=== PATIENT | male | born 1940 | race Caucasian/White ===

== ENCOUNTER 2022-06-13 20:37 | Inpatient (IN) | payer MEDICARE, OTHER ==
[~2022-06-13] VITALS: Ht 170.2 cm; Wt 115.7 kg
--- NOTE | 2022-06-13 20:00 | NUR ---
Received admission report from [facility] nurse.
--- NOTE | 2022-06-13 20:35 | NUR ---
Patient arrived in the floor from [facility] via gurney accompanied by 2 EMT's and son. Awake, alert and oriented x 4, French speaking with a little Panamanian. In no apparent distress. Denies any pain at this time. Left hip dressing dry and intact, Limited mobilty noted on LE. Transferred to bed with 3 people assist. Made comfortable in bed. Routine admission care done. Plan of acre initiated.
[2022-06-13 22:45] VITALS: BP 126/66
[2022-06-13] MEDS ORDERED: LOSA1TAB39 PO (23:36)
[2022-06-13] MEDS ORDERED: APIX2.5T PO (23:36)
[2022-06-13] MEDS ORDERED: SENN-18 PO (23:36)
[2022-06-13] MEDS ORDERED: FERR325T28 PO (23:36)
[2022-06-13] MEDS ORDERED: PREG50CA PO (23:36)
[2022-06-13] MEDS ORDERED: ALEN70TA80 PO (23:36)
[2022-06-13] MEDS ORDERED: CALC-494 PO (23:36)
[2022-06-13] MEDS ORDERED: DEXL60CA3 PO (23:36)
[2022-06-13] MEDS ORDERED: HYDR-4077 PO (23:36)
[2022-06-13] MEDS ORDERED: CLON0.1T PO (23:36)
[2022-06-13] MEDS ORDERED: SIMV-46 PO (23:36)
[2022-06-13] MEDS ORDERED: METF-442 PO (23:36)
[2022-06-13] MEDS ORDERED: AMLO-212 PO (23:36)
[2022-06-13] MEDS ORDERED: DOCU250C14 PO (23:36)
[2022-06-13] MEDS ORDERED: IBUP-1955 PO (23:36)
[2022-06-13] MEDS ORDERED: TICA90TA PO (23:37)
[2022-06-14 04:00] VITALS: BP 127/72
[2022-06-14] MEDS ORDERED: Medication Not On Formulary EA (Metformin Hcl 1,000 MG) PO PRN (07:00)
[2022-06-14] MEDS ORDERED: PREGABALIN 50 MG CAPSULE PO PRN (07:00)
[2022-06-14] MEDS ORDERED: AMLODIPINE 5 MG TABLET PO PRN (07:00)
[2022-06-14] MEDS ORDERED: DOCUSATE SODIUM 250 MG CAPSULE PO PRN (07:00)
[2022-06-14] MEDS ORDERED: CLONIDINE HCL 0.1 MG TABLET PO PRN (07:00)
[2022-06-14 08:00] VITALS: BP 116/62
[2022-06-14] MEDS ORDERED: Medication Not On Formulary EA (Losartan/Hydrochlorothiazide (Losartan-Hctz 100-25 Mg Ta PO SCH (09:00)
[2022-06-14] MEDS: PREGABALIN 50 MG CAPSULE PO SCH (10:20)
[2022-06-14] MEDS: FERROUS SULFATE 325 MG TABEC PO SCH (10:21)
[2022-06-14] MEDS: APIXABAN 2.5 MG TABLET PO SCH ×2 (10:21→17:34)
[2022-06-14] MEDS: METFORMIN HCL 500 MG TABLET PO SCH ×2 (10:22→17:34)
[2022-06-14] MEDS: CALCIUM CARBONATE 500 MG TABLET PO SCH ×2 (10:22→17:33)
[2022-06-14] MEDS: SENNOSIDES 1 TABLET PO SCH (10:22)
[2022-06-14] MEDS: LOSARTAN POTASSIUM 50 MG TABLET PO SCH (10:28)
[2022-06-14] MEDS: HYDROCHLOROTHIAZIDE 25 MG TABLET PO SCH (10:29)
[2022-06-14] MEDS: AMLODIPINE 5 MG TABLET PO SCH (10:30)
[2022-06-14] MEDS: TICAGRELOR 90 MG TABLET PO SCH ×2 (11:53→17:34)
[2022-06-14] MEDS: REMEDY ESSENTIAL ZINC PASTE 113 GM TOP SCH ×2 (11:54→21:39)
[2022-06-14 15:30] VITALS: BP 135/62
--- NOTE | 2022-06-14 17:30 | NUR ---
Patient remains alert, oriented x 4, not in any form of distress on room air. He denies any pain or discomfort. Compliant with medications and care. Assisted with his needs. Call light and frequently used items placed within reach. Family at bedside.
[2022-06-14] MEDS: SIMVASTATIN 20 MG TABLET PO SCH (21:39)
[2022-06-15 06:57] LABS: HEMATOCRIT 26.8 % (36.7-47.1); MEAN CORPUSCULAR HEMOGLOBIN 28.4 uug (23.8-33.4); MEAN CORPUSCULAR VOLUME 84.6 fL (73.0-96.2); PLATELET COUNT (AUTO) 290 K/uL (152-348)
[2022-06-15] MEDS ORDERED: ALENDRONATE SODIUM 70 MG TABLET PO SCH (07:00)
[2022-06-15 07:34] LABS: IRON, SERUM 43 ug/dL (50-175)
[2022-06-15 07:42] LABS: THYROID STIMULATING HORMONE 0.701 mIU/mL (0.358-3.740)
[2022-06-15 07:56] VITALS: BP 142/84
[2022-06-15 07:57] LABS: ALANINE AMINOTRANSFERASE 20 U/L (16-63); ALKALINE PHOSPHATASE 39 U/L (50-136); ASPARTATE AMINOTRANSFERASE 16 U/L (15-37); BILIRUBIN,TOTAL 1.3 mg/dL (0.2-1.0); CARBON DIOXIDE 26 mmol/L (21-32); CHLORIDE 100 mmol/L (98-107); CHOLESTEROL 153 mg/dL (<200); CREATININE 1.4 mg/dL (0.6-1.3); GLUCOSE 139 mg/dL (74-106); HDL CHOLESTEROL 49 mg/dL (40-60); PHOSPHOROUS 3.7 mg/dL (2.5-4.9); POTASSIUM 4.4 mmol/L (3.5-5.1); TOTAL PROTEIN, SERUM 6.3 g/dL (6.4-8.2); TRIGLYCERIDES 97 MG/DL (30-150); UREA NITROGEN, BLOOD 36 mg/dL (7-18)
[2022-06-15] MEDS ORDERED: BISACODYL 10 MG SUPP.RECT RC ONE (08:45)
[2022-06-15] MEDS: PREGABALIN 50 MG CAPSULE PO SCH ×2 (09:00→20:31)
[2022-06-15] MEDS: SENNOSIDES 1 TABLET PO SCH ×2 (09:00→20:31)
[2022-06-15] MEDS: HYDROCHLOROTHIAZIDE 25 MG TABLET PO SCH (09:00)
[2022-06-15] MEDS ORDERED: MIRALAX 17 GM POWD.PACK PO SCH (09:00)
[2022-06-15] MEDS: LOSARTAN POTASSIUM 50 MG TABLET PO SCH (09:00)
[2022-06-15] MEDS: DOCUSATE SODIUM 100 MG CAPSULE PO SCH ×2 (09:00→20:31)
[2022-06-15] MEDS: METFORMIN HCL 500 MG TABLET PO SCH ×2 (10:22→17:18)
[2022-06-15] MEDS: AMLODIPINE 5 MG TABLET PO SCH (10:22)
[2022-06-15] MEDS: TICAGRELOR 90 MG TABLET PO SCH ×2 (10:23→17:18)
[2022-06-15] MEDS: FERROUS SULFATE 325 MG TABEC PO SCH (10:23)
[2022-06-15] MEDS: CALCIUM CARBONATE 500 MG TABLET PO SCH ×2 (10:23→17:19)
[2022-06-15] MEDS: APIXABAN 2.5 MG TABLET PO SCH ×2 (10:24→17:18)
--- NOTE | 2022-06-15 10:25 | NUR ---
PER PATIENT SON, PATIENT ONLY TAKES COZAAR (LOSARTAN POTASSIUM 100MG/2 TABLETS) IF BLOOD PRESSURE SYSTOLIC IS X > 160, HYDROCHLOROTHIAZIDE IF SYSTOLIC BLOOD PRESSURE IS X > 146-159, AND TAKES PREGABALIN 50MG / 1CAP ONLY TAKES AT NIGHT TIME. PATIENT & SON REFUSES TO TAKE BOTH BLOOD PRESSURE MEDICATIONS & PREGABALIN. RN EDUCATES THE REFUSAL. SON AND PATIENT VERBALIZED UNDERSTANDING, AND WOULD LIKE TO ASK THE DOCTOR TO CHANGE TO PARAMETERS MENTIONED. PER PATIENT, PATIENT HAD A BOWEL MOVEMENT. PATIENT REFUSES ALL LAXATIVES AND STOOL SOFTENERS. RN EDUCATES REGARDING REFUSAL OF MEDICATIONS. SON AND PATIENT VERBALIZED UNDERSTANDING, AND WOULD LIKE TO CHANGE TO PRN ORDERS. RN WILL INFORM DOCTOR.
[2022-06-15] MEDS: REMEDY ESSENTIAL ZINC PASTE 113 GM TOP SCH ×2 (10:26→20:31)
--- NOTE | 2022-06-15 11:10 | NUR ---
CALLED MD (Yaneth SIBLEY) REGARDING SON AND PATIENT REQUEST. PER PHONE CALL, PATIENT WILL DISCONTINUE HYDROCHLOROTHIAZIDE 25MG / 1 TAB AND LOSARTAN 100MG /2 TAB. CHANGE MIRLAX TO PRN.
[2022-06-15] MEDS ORDERED: MIRALAX 17 GM POWD.PACK PO PRN (11:15)
--- NOTE | 2022-06-15 13:25 | NUR ---
INTERDISCIPLINARY TEAM CONFERENCE
[2022-06-15 15:50] VITALS: BP 119/78
--- NOTE | 2022-06-15 19:26 | NUR ---
RECEIVED REPORT FROM WALLACE SHAW. PATIENT IS ALERT AND ORIENTED X4, AND SPEAKS CITIZEN OF [place]. PATIENT PARTICIPATES IN PHYSICAL THERAPY WELL. PATIENT TOLERATES PO MEDICATIONS AND DIET WELL. PATIENT HAD 2 BOWEL MOVEMENTS TODAY. PATIENT VOID ADEQUATELY. PATIENT HAD NO REPORTS OF PAIN WITH NURSING STAFF. NO ACUTE DISTRESS NOTED. PATIENT RESTS ADEQUATELY DURING SHIFT. FALL PRECAUTIONS MAINTAINED, BED ALARM AND BED IN LOWEST POSITION. ALL NEEDS ATTENDED TO AT THIS TIME. ENDORSED CARE TO WALLACE SHAW, NOC SHIFT.
[2022-06-15 20:08] VITALS: BP 137/72
[2022-06-15] MEDS: SIMVASTATIN 20 MG TABLET PO SCH (20:31)
[2022-06-16 04:30] VITALS: BP 131/69
[2022-06-16 08:06] VITALS: BP 138/68
[2022-06-16] MEDS: CALCIUM CARBONATE 500 MG TABLET PO SCH ×2 (08:36→16:45)
[2022-06-16] MEDS: TICAGRELOR 90 MG TABLET PO SCH ×2 (08:36→16:45)
[2022-06-16] MEDS: SENNOSIDES 1 TABLET PO SCH ×2 (08:36→20:42)
[2022-06-16] MEDS: DOCUSATE SODIUM 100 MG CAPSULE PO SCH ×2 (08:36→20:42)
[2022-06-16] MEDS: FERROUS SULFATE 325 MG TABEC PO SCH (08:36)
[2022-06-16] MEDS: METFORMIN HCL 500 MG TABLET PO SCH ×2 (08:37→16:45)
[2022-06-16] MEDS: AMLODIPINE 5 MG TABLET PO SCH (08:37)
[2022-06-16] MEDS: APIXABAN 2.5 MG TABLET PO SCH ×2 (08:39→16:46)
[2022-06-16] MEDS: REMEDY ESSENTIAL ZINC PASTE 113 GM TOP SCH ×2 (08:49→20:42)
[2022-06-16 15:42] VITALS: BP 135/65
[2022-06-16] MEDS: ACETAMINOPHEN ES 500 MG TABLET PO PRN (18:03)
--- NOTE | 2022-06-16 19:35 | NUR ---
Received patient laying comfortably in bed. No signs of distress or complaints of pain. Is compliant to plan of care. Safety and comfort measures enforced.
--- NOTE | 2022-06-16 19:51 | NUR ---
RECEIVED REPORT FROM WALLACE SHAW. PATIENT IS ALERT AND ORIENTED X4, AND SPEAKS MONGOLIAN. PATIENT PARTICIPATES IN PHYSICAL & OCCUPATIONAL THERAPY WELL. VITAL SIGNS WITHIN NORMAL LIMITS. PATIENT TOLERATES PO MEDICATIONS AND DIET WELL. PATIENT HAD 1 BOWEL MOVEMENTS TODAY, NOTED TO BE LOOSE. PATIENT VOID ADEQUATELY. CHANGED DRESSING ON LEFT HIP PER MD REQUEST. SURGICAL SITE CLEAN AND DRY, SCANT DRAINAGE NOTED. PATIENT HAD ONE REPORT OF PAIN. PATIENT REQUESTED TO GET TYLENOL. RN CONTACT MD AND RECEIVED ORDER FOR TYLENOL. PATIENT DENIES PAIN FOR REST OF SHIFT. PATIENT VOMITED ONE TIME DURING SHIFT. PATIENT MONITORED & NO ADDITIONAL EPISODES OCCURRED. NO ACUTE DISTRESS NOTED. PATIENT RESTS ADEQUATELY DURING SHIFT. FALL PRECAUTIONS MAINTAINED, BED ALARM AND BED IN LOWEST POSITION. ALL NEEDS ATTENDED TO AT THIS TIME. ENDORSED CARE TO WALLACE PETERS, NOC SHIFT.
[2022-06-16 20:09] VITALS: BP 121/67
[2022-06-16] MEDS: PREGABALIN 50 MG CAPSULE PO SCH (20:41)
[2022-06-16] MEDS: SIMVASTATIN 20 MG TABLET PO SCH (20:42)
[2022-06-17 04:05] VITALS: BP 129/88
--- NOTE | 2022-06-17 07:00 | NUR ---
No distress or complaints of pain noted at this time. Slept comfortably well. Continue plan of care. Safety and comfort measures maintained.
[2022-06-17 07:25] LABS: HEMATOCRIT 24.8 % (36.7-47.1); MEAN CORPUSCULAR HEMOGLOBIN 29.5 uug (23.8-33.4); MEAN CORPUSCULAR VOLUME 83.4 fL (73.0-96.2); PLATELET COUNT (AUTO) 353 K/uL (152-348)
[2022-06-17 07:42] LABS: ALANINE AMINOTRANSFERASE 15 U/L (16-63); ALKALINE PHOSPHATASE 45 U/L (50-136); ASPARTATE AMINOTRANSFERASE 11 U/L (15-37); BILIRUBIN,TOTAL 1.2 mg/dL (0.2-1.0); CARBON DIOXIDE 28 mmol/L (21-32); CHLORIDE 100 mmol/L (98-107); CREATININE 1.5 mg/dL (0.6-1.3); GLUCOSE 126 mg/dL (74-106); MAGNESIUM 2.1 mg/dL (1.8-2.4); PHOSPHOROUS 3.8 mg/dL (2.5-4.9); POTASSIUM 4.2 mmol/L (3.5-5.1); TOTAL PROTEIN, SERUM 6.1 g/dL (6.4-8.2); UREA NITROGEN, BLOOD 31 mg/dL (7-18)
[2022-06-17 07:50] VITALS: BP 123/73
[2022-06-17 08:03] VITALS: BP 123/73
[2022-06-17] MEDS: AMLODIPINE 5 MG TABLET PO SCH (08:47)
[2022-06-17] MEDS: METFORMIN HCL 500 MG TABLET PO SCH ×2 (08:47→18:45)
[2022-06-17] MEDS: FERROUS SULFATE 325 MG TABEC PO SCH (08:48)
[2022-06-17] MEDS: SENNOSIDES 1 TABLET PO SCH ×2 (08:48→21:00)
[2022-06-17] MEDS: REMEDY ESSENTIAL ZINC PASTE 113 GM TOP SCH ×2 (08:48→21:51)
[2022-06-17] MEDS: CALCIUM CARBONATE 500 MG TABLET PO SCH ×2 (08:48→18:45)
[2022-06-17] MEDS: DOCUSATE SODIUM 100 MG CAPSULE PO SCH ×2 (08:49→21:00)
[2022-06-17] MEDS: TICAGRELOR 90 MG TABLET PO SCH ×2 (08:49→18:45)
[2022-06-17] MEDS: APIXABAN 2.5 MG TABLET PO SCH ×2 (08:58→18:46)
[2022-06-17 16:33] VITALS: BP 119/56
[2022-06-17] MEDS: GLUCERNA SHAKE 237 ML CAN PO SCH (18:47)
[2022-06-17] MEDS: PREGABALIN 50 MG CAPSULE PO SCH (21:43)
[2022-06-17] MEDS: SIMVASTATIN 20 MG TABLET PO SCH (21:44)
--- NOTE | 2022-06-18 06:19 | NUR ---
RECEIVED PT AT START OF SHIFT ALERT AND ORIENTED X4 WATCHING TV NO SIGNS OF DISTRESS NOTED. PT WAS GIVEN MEDICATION HAS ORDERED NO SIGNS OF ADVERSE REACTION NOTED. DRAINED URINAL HAD 600 ML OF CLEAR YELLOW URINE. PT DENIES PAIN AND BED IN LOW POSITION HAS BED ALARM ON WILL CONTINUE TO MONITOR FOR FALLS AND SAFETY EVERY 2 HOURS. Addendum: 06/18/22 at 0626 by [facility] RN10 RN WILL ENDORSE TO AM NURSE SHIFT FINDING
[2022-06-18 07:42] VITALS: BP 130/68
[2022-06-18] MEDS: METFORMIN HCL 500 MG TABLET PO SCH ×2 (09:23→17:02)
[2022-06-18] MEDS: SENNOSIDES 1 TABLET PO SCH ×2 (09:23→21:00)
[2022-06-18] MEDS: CALCIUM CARBONATE 500 MG TABLET PO SCH ×2 (09:23→17:02)
[2022-06-18] MEDS: AMLODIPINE 5 MG TABLET PO SCH (09:23)
[2022-06-18] MEDS: FERROUS SULFATE 325 MG TABEC PO SCH (09:23)
[2022-06-18] MEDS: DOCUSATE SODIUM 100 MG CAPSULE PO SCH ×2 (09:23→21:00)
[2022-06-18] MEDS: TICAGRELOR 90 MG TABLET PO SCH ×2 (09:24→17:02)
[2022-06-18] MEDS: GLUCERNA SHAKE 237 ML CAN PO SCH ×2 (09:24→17:05)
[2022-06-18] MEDS: REMEDY ESSENTIAL ZINC PASTE 113 GM TOP SCH ×2 (09:24→21:25)
[2022-06-18] MEDS: APIXABAN 2.5 MG TABLET PO SCH ×2 (09:25→17:07)
[2022-06-18 15:48] VITALS: BP 152/67
[2022-06-18 17:24] VITALS: BP 126/62
[2022-06-18 20:00] VITALS: BP 125/65
--- NOTE | 2022-06-18 20:00 | NUR ---
RECEIVED REPORT AM NURSE EDGAR PT IS ALERT AND ORIENTED X4 ENTERED PT ROOM WATCHING TV. PT DENIES PAIN PT HS TEMP 99.1 GAVE TYLENOL ES ORDERED NO SIGNS OF ADVERSE REACTION FROM MEDICATION. PT VOID PER URINAL AND AMBULATE WITH WALKER. PT LEFT HIP DRSG DRY AND INTACT NO SIGNS OF DRAINAGE NOTE. PT WILL D/C IN AM AROUND 1100AM AND TMS AT NURSE STATION AND GIVE X-RAY GIVE WITH CD ON D/C. Addendum: 06/19/22 at 8581 by [facility]RY [facility] INPATIENT RN4 RN WILL ENDORSE SHIFT FINDING WITH AM NURSE PT MONITORED EVERY 2 HOURS FOR FALL AND SAFETY ALONG WITH OTHER NEED PT MAY HAVE.L
[2022-06-18] MEDS: PREGABALIN 50 MG CAPSULE PO SCH (21:24)
[2022-06-18] MEDS: SIMVASTATIN 20 MG TABLET PO SCH (21:24)
[2022-06-18] MEDS: ACETAMINOPHEN ES 500 MG TABLET PO PRN (21:24)
[2022-06-19] VITALS: BP 128/60
[2022-06-19 04:00] VITALS: BP 135/61
[2022-06-19 05:41] LABS: HEMATOCRIT 28.1 % (36.7-47.1); MEAN CORPUSCULAR HEMOGLOBIN 29.1 uug (23.8-33.4); MEAN CORPUSCULAR VOLUME 84.8 fL (73.0-96.2); PLATELET COUNT (AUTO) 361 K/uL (152-348)
[2022-06-19 05:56] LABS: ALANINE AMINOTRANSFERASE 17 U/L (16-63); ALKALINE PHOSPHATASE 44 U/L (50-136); ASPARTATE AMINOTRANSFERASE 7 U/L (15-37); CARBON DIOXIDE 29 mmol/L (21-32); CHLORIDE 102 mmol/L (98-107); CREATININE 1.5 mg/dL (0.6-1.3); GLUCOSE 124 mg/dL (74-106); MAGNESIUM 2.3 mg/dL (1.8-2.4); PHOSPHOROUS 3.8 mg/dL (2.5-4.9); POTASSIUM 4.8 mmol/L (3.5-5.1); TOTAL PROTEIN, SERUM 6.4 g/dL (6.4-8.2); UREA NITROGEN, BLOOD 24 mg/dL (7-18)
[2022-06-19] MEDS: GLUCERNA SHAKE 237 ML CAN PO SCH (08:49)
[2022-06-19] MEDS: METFORMIN HCL 500 MG TABLET PO SCH (08:51)
[2022-06-19 08:56] VITALS: BP 146/84
[2022-06-19] MEDS: FERROUS SULFATE 325 MG TABEC PO SCH (08:56)
[2022-06-19] MEDS: CALCIUM CARBONATE 500 MG TABLET PO SCH (08:56)
[2022-06-19] MEDS: AMLODIPINE 5 MG TABLET PO SCH (08:56)
[2022-06-19] MEDS: TICAGRELOR 90 MG TABLET PO SCH (08:57)
[2022-06-19] MEDS: DOCUSATE SODIUM 100 MG CAPSULE PO SCH (08:57)
[2022-06-19] MEDS: SENNOSIDES 1 TABLET PO SCH (08:57)
[2022-06-19] MEDS: APIXABAN 2.5 MG TABLET PO SCH (09:01)
--- NOTE | 2022-06-19 12:10 | NUR ---
Pt. was A/O x 4 this am. took all his meds , ate breakfst
--- NOTE | 2022-06-19 12:13 | NUR ---
Pt. was A/O x 4 this am. ATE breakfast, took his meds. Son came in since pt had orderes to be discharge at 11 am. All the paper work done for discharge and given to the son. Pt. went home with the son who will be taking care of him. pt was stable was taken ourt via wheelchair to the car. pt. able to umbulate a few steps to the car.
--- NOTE | 2022-06-19 12:18 | NUR ---
INDIVIDUALIZED PLAN OF CARE THIS WAS OBSERVED AND DONE ON 06/16/22
== END 2022-06-19 11:40 | disposition home health service (06) | DRG 560 ==
PROVIDERS: ADMIT Physical Medicine & Rehabilitation Pain Medicine; ATTEND Physical Medicine & Rehabilitation Pain Medicine
DX: S72.142D Displaced intertrochanteric fracture of left femur, subsequent encounter for closed fracture with routine healing (principal); N17.9 Acute kidney failure, unspecified; E11.9 Type 2 diabetes mellitus without complications; E78.5 Hyperlipidemia, unspecified; I10 Essential (primary) hypertension; I25.10 Atherosclerotic heart disease of native coronary artery without angina pectoris; K59.00 Constipation, unspecified; W18.30XD Fall on same level, unspecified, subsequent encounter; Z95.5 Presence of coronary angioplasty implant and graft; D64.9 Anemia, unspecified; E11.22 Type 2 diabetes mellitus with diabetic chronic kidney disease; N18.9 Chronic kidney disease, unspecified; I12.9 Hypertensive chronic kidney disease with stage 1 through stage 4 chronic kidney disease, or unspecified chronic kidney disease; M89.8X9 Other specified disorders of bone, unspecified site; Z79.4 Long term (current) use of insulin
CPT/HCPCS: 36415; 73501; 73502; 83550; 83735; 84100; 84443; 85025; 97535-GO-CO; A9150; J8499

== ENCOUNTER 2025-03-20 14:07 | Inpatient (IN) | payer MEDICARE, OTHER ==
[~2025-03-20] VITALS: Ht 177.8 cm; Wt 84.4 kg
[2025-03-20 10:17] VITALS: BP 129/70; TEMP 97.7
[2025-03-20 10:30] VITALS: BP 129/70; TEMP 97.7
[~2025-03-20 14:07] MED LIST: ALEN70TA80 PO; AMLO-212 PO; APIX2.5T PO; CALC-494 PO; CLON0.1T PO; DEXL60CA3 PO; DOCU250C14 PO; FERR325T28 PO; LOSA1TAB39 PO; METF-442 PO; PREG50CA PO; SENN-18 PO; SIMV-46 PO; TICA90TA PO
[2025-03-21] MEDS ORDERED: AMIO200T5 PO (14:02)
[2025-03-21] MEDS ORDERED: MAG355OR32 PO (14:02)
[2025-03-21] MEDS ORDERED: ASCO500T85 PO (14:02)
[2025-03-21] MEDS ORDERED: ZOLP5TAB8 PO (14:02)
[2025-03-21] MEDS ORDERED: ENOX40DI SQ (14:02)
[2025-03-21] MEDS ORDERED: DOCU100T2 PO (14:02)
[2025-03-21] MEDS ORDERED: CYAN500T9 PO (14:02)
[2025-03-21] MEDS ORDERED: PANT40TA49 PO (14:02)
[2025-03-21] MEDS ORDERED: FERR-68 PO (14:02)
[2025-03-21] MEDS ORDERED: ZINC113P3 TP (14:02)
[2025-03-21] MEDS ORDERED: MAGN400O6 PO (14:02)
[2025-03-21] MEDS ORDERED: INSU100V28 SQ (14:02)
[2025-03-21] MEDS ORDERED: DAPA5TAB PO (14:02)
[2025-03-21] MEDS ORDERED: ACET325T53 PO (14:02)
[2025-03-21] MEDS ORDERED: METO25TA6 PO (14:02)
[2025-03-21 15:44] VITALS: BP 149/64; TEMP 98.5; O2SAT 96
[2025-03-21] MEDS ORDERED: DEXTROSE 50% 50 ML DISP.SYRIN IV PRN (15:45)
[2025-03-21 16:34] LABS: *BILIRUBIN,URIN NEGATIVE (NEGATIVE); *BLOOD, URINE 2+ (NEGATIVE); *CLARITY,URINE SLIGHTLY CLOUDY (CLEAR); *COLOR,URINE LIGHT YELLOW (YELLOW); *KETONES,URINE NEGATIVE (NEGATIVE); *PROTEIN,URINE TRACE (NEGATIVE); *UROBILINOGEN,URINE 0.2 E.U./dl (NORMAL); LEUKOCYTE ESTERASE ,URINE 3+ (NEGATIVE); NITRITE, URINE NEGATIVE (NEGATIVE)
[2025-03-21 16:42] LABS: UGLUCOSE 2+ (NEGATIVE)
[2025-03-21 16:46] LABS: SQUAMOUS EPITHELIAL CELL,UR FEW /HPF (NONE SEEN)
[2025-03-21] MEDS: BLOOD SUGAR DIAGNOSTIC 1 EACH STRIP VI SCH (17:00)
[2025-03-21] MEDS: AMIODARONE HCL 200 MG TABLET PO SCH (17:01)
[2025-03-21] MEDS: METOPROLOL TARTRATE 25 MG TABLET PO SCH (17:01)
[2025-03-21] MEDS: INSULIN REGULAR, HUMAN 1000 UNIT/10 ML VIAL SQ PRN (17:04)
[2025-03-21] MEDS: MAGNESIUM HYDROXIDE 30 ML LIQUID UDC PO PRN (17:21)
[2025-03-21] MEDS: TRAMADOL HCL 50 MG TABLET PO PRN (18:55)
[2025-03-21] MEDS: CALCIUM CARBONATE 500 MG TAB.CHEW PO SCH (20:32)
[2025-03-21] MEDS: DOCUSATE SODIUM 100 MG CAPSULE PO SCH (20:32)
[2025-03-22] MEDS: PANTOPRAZOLE SODIUM 40 MG TABLET.DR PO SCH (06:50)
[2025-03-22 06:53] VITALS: BP 150/65; TEMP 97.4; O2SAT 96
[2025-03-22 08:05] VITALS: BP 146/60; TEMP 98.4; O2SAT 93
[2025-03-22] MEDS: ASCORBIC ACID 500 MG TABLET PO SCH (08:09)
[2025-03-22] MEDS: FERROUS SULFATE 325 MG TABEC PO SCH (08:09)
[2025-03-22] MEDS: DAPAGLIFLOZIN PROPANEDIOL 5 MG TABLET PO SCH (08:09)
[2025-03-22] MEDS: AMLODIPINE 5 MG TABLET PO SCH (08:10)
[2025-03-22] MEDS: ENOXAPARIN SODIUM 40 MG/0.4 ML DISP.SYRIN SQ SCH (08:11)
[2025-03-22] MEDS: CYANOCOBALAMIN 1,000 MCG TABLET PO SCH (08:15)
[2025-03-22] MEDS ORDERED: Medication Not On Formulary EA (Dapagliflozin Propanediol (Farxiga) 5 MG) PO SCH (09:00)
[2025-03-22 09:19] LABS: PLATELET COUNT (AUTO) 268 K/uL (152-348); RED BLOOD CELL COUNT(AUTO) 4.97 MIL/uL (4.06-5.63); RED CELL DISTRIBUTION WIDTH 16.1 % (12.1-16.2); WHITE BLOOD COUNT (AUTO) 8.9 K/uL (3.6-10.2)
[2025-03-22 09:28] LABS: CREATININE 1.6 mg/dL (0.6-1.3); SODIUM SERUM 136 mmol/L (136-145); UREA NITROGEN, BLOOD 25 mg/dL (7-18)
[2025-03-22 16:28] VITALS: BP 120/68; TEMP 99.3; O2SAT 95
[2025-03-22 16:38] VITALS: TEMP 98.7
[2025-03-23 09:01] VITALS: BP 166/79; TEMP 98.8; O2SAT 95
[2025-03-23 13:50] VITALS: BP 146/69; O2SAT 95
[2025-03-23 14:17] VITALS: BP 127/68; O2SAT 95
[2025-03-23 15:55] VITALS: BP 123/57; TEMP 97.9; O2SAT 94
[2025-03-23 20:08] VITALS: BP 128/62; TEMP 97.8; O2SAT 94
[2025-03-24 06:33] VITALS: BP 155/70; TEMP 98.6; O2SAT 94
[2025-03-24 08:30] VITALS: BP 145/68; TEMP 98; O2SAT 97
[2025-03-24] MEDS: AMIODARONE HCL 200 MG TABLET PO SCH (08:54)
[2025-03-24 17:00] VITALS: BP 147/74; TEMP 98.2; O2SAT 93
[2025-03-24] MEDS: ZOLPIDEM 5 MG TABLET PO PRN (21:26)
[2025-03-24 21:55] VITALS: BP 144/66; TEMP 98; O2SAT 93
[2025-03-25 06:48] VITALS: BP 130/68; TEMP 98.1; O2SAT 94
[2025-03-25 08:00] VITALS: BP 161/73; TEMP 98.3; O2SAT 96
[2025-03-25] MEDS: ASPIRIN 81 MG TAB.CHEW PO SCH (08:56)
[2025-03-25] MEDS: CEFEPIME (MAXEPIME) 1 G in IV DEXTROSE 5% 50 ML IV SCH (14:25)
[2025-03-25 16:54] VITALS: BP 157/78; TEMP 97.7; O2SAT 94
[2025-03-25 21:55] VITALS: BP 135/67; TEMP 98; O2SAT 99
[2025-03-26] MEDS: ALENDRONATE SODIUM 70 MG TABLET PO SCH (06:28)
[2025-03-26 07:22] VITALS: BP 122/68; TEMP 98; O2SAT 98
[2025-03-26 07:50] VITALS: BP 156/77; TEMP 98.1; O2SAT 98
[2025-03-26] MEDS: OXYCODONE HCL 5 MG TABLET PO PRN (09:49)
[2025-03-26 16:10] VITALS: BP 141/80; TEMP 97.4; O2SAT 97
[2025-03-26 20:38] VITALS: BP 128/69; TEMP 97.6; O2SAT 91
[2025-03-27 06:43] VITALS: BP 147/67; TEMP 97.8; O2SAT 95
[2025-03-27 08:00] VITALS: BP 152/71; TEMP 98.2; O2SAT 94
[2025-03-27 08:47] VITALS: BP 152/71
[2025-03-28] MEDS ORDERED: AMIODARONE HCL 200 MG TABLET PO SCH (21:00)
[2025-04-05] MEDS ORDERED: AMIODARONE HCL 200 MG TABLET PO SCH (09:00)
[2025-04-11] MEDS ORDERED: AMIODARONE HCL 200 MG TABLET PO SCH (09:00)
== END 2025-03-27 15:10 | disposition home health service (06) | DRG 559 ==
PROVIDERS: ADMIT Physical Medicine & Rehabilitation Pain Medicine; ATTEND Physical Medicine & Rehabilitation Pain Medicine
DX: S32.591D Other specified fracture of right pubis, subsequent encounter for fracture with routine healing (principal); N17.0 Acute kidney failure with tubular necrosis; D68.59 Other primary thrombophilia; N39.0 Urinary tract infection, site not specified; S22.41XD Multiple fractures of ribs, right side, subsequent encounter for fracture with routine healing; W18.30XD Fall on same level, unspecified, subsequent encounter; E11.22 Type 2 diabetes mellitus with diabetic chronic kidney disease; I12.9 Hypertensive chronic kidney disease with stage 1 through stage 4 chronic kidney disease, or unspecified chronic kidney disease; N18.9 Chronic kidney disease, unspecified; B96.89 Other specified bacterial agents as the cause of diseases classified elsewhere; E78.5 Hyperlipidemia, unspecified; I25.10 Atherosclerotic heart disease of native coronary artery without angina pectoris; R29.6 Repeated falls; Z79.01 Long term (current) use of anticoagulants; Z95.5 Presence of coronary angioplasty implant and graft; I48.0 Paroxysmal atrial fibrillation; Z91.81 History of falling; R00.1 Bradycardia, unspecified; T46.2X5A Adverse effect of other antidysrhythmic drugs, initial encounter; T44.7X5A Adverse effect of beta-adrenoreceptor antagonists, initial encounter; Y92.89 Other specified places as the place of occurrence of the external cause
CPT/HCPCS: 36415; 85025; 87077; 87086; 97535-GO-CO; A4663; J0692; J1650; J1815; J8499